=== PATIENT | male | born 1995 | race Caucasian/White ===

== ENCOUNTER 2020-11-27 10:25 | Emergency (ER) | payer OTHER ==
[~2020-11-27] VITALS: Ht 170.2 cm; Wt 72.6 kg
[2020-11-27] MEDS ORDERED: ZITHROMAX500 MG PO (13:51)
== END 2020-11-27 13:52 | disposition home or self-care (01) ==
LOC: ER 10:25
DX: R12 Heartburn (principal); R51.9 Headache, unspecified; Z03.818 Encounter for observation for suspected exposure to other biological agents ruled out

== ENCOUNTER 2021-06-24 20:22 | Emergency (ER) | payer OTHER ==
[~2021-06-24] VITALS: Ht 157.5 cm; Wt 72.6 kg
[~2021-06-24 20:22] MED LIST: ZITHROMAX500 MG PO
[2021-06-25] MEDS ORDERED: ZITHROMAX200 MG PO (00:52)
== END 2021-06-25 01:16 | disposition home or self-care (01) ==
LOC: ER 20:22
DX: B96.0 Mycoplasma pneumoniae [M. pneumoniae] as the cause of diseases classified elsewhere (principal); J01.90 Acute sinusitis, unspecified; J06.9 Acute upper respiratory infection, unspecified

== ENCOUNTER 2021-12-27 16:15 | Emergency (ER) | payer OTHER ==
[~2021-12-27] VITALS: Ht 167.6 cm; Wt 74.8 kg
[~2021-12-27 16:15] MED LIST changes: +ZITHROMAX200 MG PO
== END 2021-12-27 18:51 | disposition home or self-care (01) ==
LOC: ER 16:15
DX: R53.1 Weakness (principal); R10.9 Unspecified abdominal pain